=== PATIENT | male | born 1970 | race American Indian/Alaskan Native ===

== ENCOUNTER 2018-11-24 09:25 | Emergency (ER) | payer SELFPAY ==
[2018-11-24 10:22] VITALS: BP 171/123
--- NOTE | 2018-11-24 12:33 | Emergency Department Report ---
HPI - General Chief Complaint: Skin Rash Time Seen by Provider: 11/24/18 12:22 - HPI HPI: 47-year-old -[place] male presents to the emergency department with a complaint of a one-week history of some itching and a sometimes tender rash to the scalp. He denies any drainage. He has not taken anything for her symptoms prior to presentation. The patient also presents with some elevated blood pressure but admits to being out of his losartan for the past month. He says that he does not currently have a primary care physician which should have one in the next few weeks. No recent travel or sick contacts at home. ED Past Medical Hx - Past Medical History Previous Medical History?: Yes Hx Hypertension: Yes - Surgical History Past Surgical History?: Yes Additional Surgical History: Left knee sx - Social History Smoking Status: Never Smoker Substance Use Type: None - Medications Home Medications: Home Medications Medication Instructions Recorded Confirmed Last Taken Type Ketoconazole (Nf) [Ketoconazole 5 ml TP QDAY #1 bottle 11/24/18 Unknown Rx Shampoo (Nf)] RX: Losartan [Cozaar] 50 mg PO QDAY #20 tablet 11/24/18 Unknown Rx ED Review of Systems ROS: Stated complaint: HEAD INFECTED/PAIN Other details as noted in HPI Comment: All other systems reviewed and negative Constitutional: denies: chills, fever Eyes: denies: eye pain, eye discharge, vision change ENT: denies: ear pain, throat pain Respiratory: denies: cough, shortness of breath, wheezing Cardiovascular: denies: chest pain, palpitations Gastrointestinal: denies: abdominal pain, vomiting Genitourinary: denies: dysuria, discharge Musculoskeletal: denies: back pain, arthralgia Skin: rash, pruritus Neurological: denies: headache, weakness Psychiatric: denies: anxiety, depression Physical Exam - Physical Exam Vital Signs: Vital Signs 11/24/18 10:19 Temperature 97.9 F Pulse Rate 102 H Respiratory 18 Rate Blood Pressure 171/123 O2 Sat by Pulse 99 Oximetry Physical Exam: GENERAL: The patient is well-developed well-nourished. HEENT: Normocephalic. Atraumatic. Patient has moist mucous membranes. EYES: Extraocular motions are intact. Pupils are equal and reactive to light bilaterally. NECK: Supple. Trachea is midline. CHEST/LUNGS: Clear to auscultation. There is no respiratory distress noted. HEART/CARDIOVASCULAR: Regular. There is no tachycardia. There is no obvious murmur. ABDOMEN: There is no abdominal distention. SKIN: Skin is warm and dry. Patient has some patchy areas of the scalp that are scaly and raised up from the scalp/skin. The skin looks folded and irregular. There is no erythema, bleeding, weeping or drainage. NEURO: The patient is awake, alert, and oriented. The patient is cooperative. The patient has no focal neurologic deficits. The patient has normal speech. MUSCULOSKELETAL: There is no tenderness or deformity. There is no evidence of acute injury. ED Course Vital Signs 11/24/18 10:19 Temperature 97.9 F Pulse Rate 102 H Respiratory 18 Rate Blood Pressure 171/123 O2 Sat by Pulse 99 Oximetry ED Medical Decision Making - Medical Decision Making Patient presents with some rash to the scalp that is itchy and occasionally slightly tender. There is no kerion. There is no erythema, weeping, drainage. It appears less consistent with a bacterial infection and more consistent with something fungal, such as a seborrheic dermatitis. Patient will be placed on ketoconazole shampoo and he has been given referrals for dermatology. The patient also presents with some elevated blood pressure and medication noncompliance with his losartan. He is asymptomatic for any hypertensive condition. He has been given a prescription for some losartan and some primary care physician referrals. He will return to the ER if any worsening of his sym ptoms or any acute distress. - Differential Diagnosis subarachnoid dermatitis, contact dermatitis, karion, tinea Critical Care Time: No Critical care attestation.: If time is entered above; I have spent that time in minutes in the direct care of this critically ill patient, excluding procedure time. ED Disposition Clinical Impression: Acute seborrheic dermatitis, Infection of scalp, Noncompliance with medication regimen Hypertension Qualifiers: Hypertension type: essential hypertension Qualified Code(s): I10 - Essential (primary) hypertension Disposition: -01 TO HOME OR SELFCARE Is pt being admited?: No Condition: Stable Instructions: Hypertension (ED) Additional Instructions: Please follow up with a primary care physician and a director data. I'm giving him a referral for 2 different dermatologists. I have prescribed an antifungal shampoo. It is to be used twice per week for the next 2-3 weeks. I have also given a refill of some blood pressure medications. Keep a blood pressure log. Try and stay away from foods that are high in salt and caffeinated products. Return to the emergency Department with any worsening of your symptoms or any acute distress. Prescriptions: Ketoconazole (Nf) [Ketoconazole Shampoo (Nf)] 5 ml TP QDAY #1 bottle RX: Losartan [Cozaar] 50 mg PO QDAY #20 tablet Referrals: PRIMARY CAREMD [Primary Care Provider] - 2-3 Days RICHY MULLIGAN MD [Staff Physician] - 2-3 Days Alpesh Couch [Other] - 2-3 Days Time of Disposition: 12:33
== END 2018-11-24 12:47 | disposition home or self-care (01) ==
LOC: ED 09:25
DX: L21.8 Other seborrheic dermatitis (principal); L08.89 Other specified local infections of the skin and subcutaneous tissue; I10 Essential (primary) hypertension
CPT/HCPCS: 99282